=== PATIENT | male | born 1955 | race Hispanic/Latino ===

== ENCOUNTER 2017-11-11 06:18 | Day surgery (SDC) | payer BC ==
[2017-11-11] MEDS ORDERED: NACL 0.9% 500 ML 500 ML ONE (06:47)
[2017-11-11] MEDS ORDERED: NACL 0.9% 500 ML 500 ML IV SCH ×2 (07:00→08:00)
[2017-11-11 07:38] LABS: Basophils # (Auto) 0.1 K/mm3 (0.0-0.1); Basophils % (Auto) 0.8 % (0.0-1.8); Eosinophils # (Auto) 0.2 K/mm3 (0.0-0.4); Eosinophils % (Auto) 2.1 % (0.0-4.3); Hematocrit 42.1 % (35.5-45.6); Hemoglobin 14.3 gm/dl (11.8-15.2); Lymphocytes # (Auto) 3.7 K/mm3 (1.2-5.4); Lymphocytes % (Auto) 32.4 % (13.4-35.0); Mean Corpuscular HGB Conc 34 % (32-34); Mean Corpuscular Hemoglobin 28 pg (28-32); Mean Corpuscular Volume 83 fl (84-94); Monocytes # (Auto) 0.7 K/mm3 (0.0-0.8); Platelet Count 300 K/mm3 (140-440); Red Blood Count 5.06 M/mm3 (3.65-5.03); Red Cell Distribution Width 14.7 % (13.2-15.2)
[2017-11-11 07:48] LABS: INR 0.82 (0.87-1.13)
[2017-11-11 07:59] LABS: BUN/Creatinine Ratio 27; Blood Urea Nitrogen 19 mg/dL (9-20); Calcium 9.2 mg/dL (8.4-10.2); Hemolysis Index 19
[2017-11-11] MEDS ORDERED: HEPARIN/NS 5000 UNIT/500ML(CATH LAB) 1,000 ML IR ONE (09:04)
[2017-11-11] MEDS ORDERED: CALAN ONE (09:05)
[2017-11-11] MEDS ORDERED: XYLOCAINE 2% INFILTRATI ONE (09:05)
[2017-11-11] MEDS ORDERED: HEPARIN 10,000 UNITS/10 ML ONE (09:05)
[2017-11-11] MEDS ORDERED: SUBLIMAZE ONE (09:06)
[2017-11-11] MEDS ORDERED: VERSED ONE (09:06)
[2017-11-11 13:05] VITALS: BP 133/63
--- NOTE | 2017-11-11 13:49 | Cardiac Catherization Report ---
PERIPHERAL ANGIOGRAM The patient is a 62-year-old white gentleman with history of hypertension, diabetes mellitus, chronic smoking. He has bilateral claudication of lower extremities of many months' duration, getting worse now where he has to stop at 50 feet of walking. He gets bilateral calf pain along with numbness in the right thigh. His activities are limited. Noninvasive studies showed bilateral arterial disease, hence scheduled for contrast angiography. The patient is accompanied by his . The patient and were explained of the procedure, potential complications and the alternatives of therapy available. They are aware of the potential complications of contrast allergy, potential renal failure in addition to complication including hemorrhage and hematoma. Also, possible stroke, renal failure were explained to the patient and . They are agreeable to proceed with catheterization. The patient was brought to the catheterization laboratory in a fasting condition. The patient was prepared in a standard fashion and sterile drapes were applied over the entire body and after reviewing the patient's laboratory data and clinical exam, the patient was sedated with IV Versed and fentanyl at 9:25 a.m. Subsequently, right radial artery puncture was made using 21-gauge arterial puncture needle using local anesthesia. Subsequently, a 5-Mongolian sheath was introduced. Under fluoroscopy, 5-Mongolian pigtail catheter was advanced into L1 vertebral area. Abdominal aortogram was performed using 40 mL of dye at 20 mL per second. Subsequently, pigtail catheter was advanced to the L4-L5 area to location above the bifurcation of the aorta into common iliacs. The patient's position of legs was adjusted under fluoroscopy to obtain angiograms of the pelvic vessels in both lower extremities. Using 60 mL of dye at 10 mL per second, angiograms were obtained of the bilateral pelvic vessels and lower extremities. Subsequently, selective angiograms of the left and right pelvic vessels were obtained in oblique positions using 20 mL of dye at 10 mL per second. Once satisfactory angiograms were obtained, Pigtail catheter was removed without difficulty. Good hemostasis was achieved in the right radial artery. During the entire procedure, the patient was monitored with hemodynamics, namely arterial pressure along with oxygen saturations and electrographic monitoring. The patient was asymptomatic of any leg pains or chest pain. No arrhythmia noted. Blood pressure has been stable. The patient was transferred to the outpatient area in stable condition. The patient received moderate sedation after evaluation for the same with IV Versed and fentanyl starting at 9:25 a.m. and patient was monitored for effects of the sedation in the catheterization laboratory up to 10:01 a.m., at which time he was transferred to the room in awake condition and breathing well without any complaints. The patient is comfortable. No untoward complications were noted. Following findings were noted. Abdominal aortogram showed aorta to be of normal size with mild smooth irregularities. Right renal artery showed a 60% smooth long proximal lesion. Left renal artery appears to be unremarkable. Kidneys appear to be of normal size. There is no obvious aneurysmal dilation of the abdominal aorta noted. Angiographically of the pelvic vessels: Right common iliac artery showed eccentric 70% lesion distally. Right internal iliac is patent. Right external iliac showed mild to moderate disease. Angiograms of the left sided iliac vessel showed a 60% distal common iliac lesion, which appears to be mildly calcified. Left internal iliac artery is completely occluded. Left external iliac artery without significant disease. Angiography of the right lower extremity: showed patent right common femoral artery and right SFA. Right SFA distally shows 70% very focal lesion. Right deep femoral artery is widely patent. Right popliteal artery and infra tibial arteries, namely anterior tibial, peroneal, and posterior tibial are widely patent up to the pedal vessels. Angiograms of the left lower extremity:showed mild ostial lesion of the left SFA. Left common femoral artery appears to be unremarkable. There is a segmental 60-70% eccentric lesion in the distal SFA. Left popliteal appears to be unremarkable with three patent infrapopliteal vessels. Left anterior tibial artery shows moderate disease in the proximal one third. Otherwise, patent left peroneal and posterior tibial arteries without significant disease supplying the pedal vessels which are patent. FINAL IMPRESSION: 1. Abdominal aorta appears to be unremarkable with mild irregularities, but no aneurysmal dilatation and 60% or so smooth lesion of the proximal part of the right renal artery. 2. Right common iliac artery shows eccentric mildly calcific lesion in the distal part of the common iliac artery along with moderate disease of the right external iliac artery. Right distal SFA shows 70% very focal lesion with 3-vessel distal runoff. 3. Left common iliac artery shows 60-70% calcific lesion in the distal part with occluded left internal iliac artery. Mild disease of the proximal SFA was noted on the left side with 60-70% segmental lesion in the distal SFA. Popliteal artery is patent on the left side with 3-vessel runoff with some disease in the proximal part of the left anterior tibial artery. Final impression: The patient has bilateral mostly common iliac and distal SFA lesions. These appeared to be amenable for intervention. Considering the patient is having bilateral claudication and thigh pains more on the right than left, would recommend intervention of these lesions. These lesions appeared to be amenable for percutaneous intervention, recommended the same. The patient and family are going to discuss with Dr. De La O, his lean process deployment consultant and we will arrange for intervention of the right lower extremity, initially and subsequently of the left lower extremity depending on the symptomatology. The patient is a chronic smoker. He still smokes. The patient has underlying hypertension and diabetes mellitus. Discussed with the patient and his about potential for restenosis and worsening disease with his history of smoking. He was encouraged to quit smoking. He is going to think about it. The patient tolerated the procedure well. No untoward complications were noted. Right radial artery site appears to be unremarkable. JOB# [id number] SANAM/ED GUEVARA
== END 2017-11-11 13:40 | disposition home or self-care (01) ==
LOC: CATHLABREC 06:18
PROVIDERS: ATTEND Internal Medicine
DX: I70.213 Atherosclerosis of native arteries of extremities with intermittent claudication, bilateral legs (principal); I10 Essential (primary) hypertension; E78.5 Hyperlipidemia, unspecified; E11.51 Type 2 diabetes mellitus with diabetic peripheral angiopathy without gangrene; F17.210 Nicotine dependence, cigarettes, uncomplicated; Z98.890 Other specified postprocedural states; Z79.01 Long term (current) use of anticoagulants; Z79.84 Long term (current) use of oral hypoglycemic drugs
CPT/HCPCS: 36200; 36415; 75625; 75716; 80048; 85025; 85610; 85730; 99156; 99157; C1769; C1894; J1644; J2250; J3010; J7040; Q9967

== ENCOUNTER 2017-12-23 06:29 | Day surgery (SDC) | payer BC ==
[2017-12-23] MEDS ORDERED: NACL 0.9% 500 ML 500 ML IV SCH (07:00)
[2017-12-23 07:21] LABS: Basophils # (Auto) 0.1 K/mm3 (0.0-0.1); Basophils % (Auto) 0.9 % (0.0-1.8); Eosinophils # (Auto) 0.3 K/mm3 (0.0-0.4); Eosinophils % (Auto) 2.2 % (0.0-4.3); Hematocrit 41.8 % (35.5-45.6); Hemoglobin 14.1 gm/dl (11.8-15.2); Lymphocytes # (Auto) 3.7 K/mm3 (1.2-5.4); Lymphocytes % (Auto) 32.8 % (13.4-35.0); Mean Corpuscular HGB Conc 34 % (32-34); Mean Corpuscular Hemoglobin 28 pg (28-32); Mean Corpuscular Volume 83 fl (84-94); Monocytes # (Auto) 0.8 K/mm3 (0.0-0.8); Monocytes % (Auto) 6.9 % (0.0-7.3); Platelet Count 308 K/mm3 (140-440); Red Blood Count 5.05 M/mm3 (3.65-5.03); Red Cell Distribution Width 15.2 % (13.2-15.2)
[2017-12-23 07:35] LABS: INR 0.82 (0.87-1.13)
[2017-12-23 07:39] LABS: BUN/Creatinine Ratio 37; Blood Urea Nitrogen 22 mg/dL (9-20); Calcium 9.2 mg/dL (8.4-10.2); Hemolysis Index 90
[2017-12-23] MEDS ORDERED: XYLOCAINE 2% INFILTRATI ONE (08:06)
[2017-12-23] MEDS ORDERED: HEPARIN/NS 5000 UNIT/500ML(CATH LAB) 1,000 ML IR ONE (08:06)
[2017-12-23] MEDS ORDERED: VERSED ONE (08:07)
[2017-12-23] MEDS ORDERED: SUBLIMAZE ONE (08:07)
[2017-12-23] MEDS: HEPARIN 10,000 UNITS/10 ML ONE ×2 (10:02→10:20)
[2017-12-23] MEDS ORDERED: HEPARIN/NS 5000 UNIT/500ML(CATH LAB) 500 ML IR ONE (10:12)
--- NOTE | 2017-12-23 11:40 | Cardiac Catherization Report ---
PERIPHERAL ARTERIAL REPORT The patient is a 62-year-old white gentleman with history of hypertension, diabetes mellitus, chronic smoking, had bilateral claudication of the lower extremities of longstanding duration. Now, he is getting have pain in the right thigh on walking 50 feet of walking. Also, he feels numbness in the right thigh. Hence, he underwent peripheral angiogram performed on 11/11/2016. Because his symptoms are more in the right thigh area, it was decided to do intervention of the right common iliac and right external iliac arteries. The patient does have focal distal SFA lesion. The patient was explained of the procedure, potential complications, and the alternatives of therapy available. I explained the procedure. He is willing to have intervention attempted. He is aware of alternatives of surgical intervention. DESCRIPTION OF PROCEDURE: The patient was brought to the catheterization laboratory in a fasting condition. The patient was prepared in a standard fashion. The patient was sedated with IV Versed and fentanyl around 9:30 a.m. after evaluating for appropriateness of moderate sedation. Subsequently, sterile drapes were applied. Local anesthesia was given in the left groin area. A 5-Hungarian sheath was introduced. Subsequently, using a rim catheter, 0.035 inch Yogi[place] guidewire was advanced into the right distal SFA. Subsequently, 7-Hungarian 23 cm standard sheath was advanced over the bifurcation into the right common iliac area. Angiograms of the right pelvic vessels were obtained, which showed 60% or so distal right common iliac lesion and also long right external iliac lesion. After giving heparin 70 units per kg, a gradient was obtained from the right common femoral area to the right proximal right common iliac artery and significant gradient was noted. Systolic blood pressure 157 mmHg was noted in the right proximal common iliac artery and pressure of 86 mmHg was noted in the right common femoral artery with a significant gradient more than 70 mmHg. It was felt both the lesions in the right external iliac and right common iliac were felt to be significant. Initially balloon dilation of the right external iliac was performed using 5mm x 60 mm [place] balloon to nominal pressure of 8 atmospheres, followed by placement of a 6 x 57 mm Visi-Pro EV3 stent inflated to 10 atmospheres with good result. Subsequently, a 7 x 17 mm Visi-Pro stent was inserted in the right mid to distal common iliac artery, inflated to 10 atmospheres with good result. Final gradient was much improved from 70 mm to less than 20 mm. Final angiograms did not show any evidence of perforation or dissection. The patient tolerated the procedure well without any pain or discomfort in the right lower extremity. A 23 mm sheath was changed to 11 mm 7-Hungarian sheath and the patient was transferred to the room in stable condition. Monitoring of the sedation ended at 10:35 a.m. No hematoma noted in the left groin. The patient's vital signs have been stable. The patient remained in sinus rhythm. Pulse oximetry was unremarkable. The patient's ACT was elevated in 230s at the end of the procedure. Once ACT comes to around 180 seconds, we will consider removing the sheath and putting manual pressure. Procedure was uncomplicated. FINAL IMPRESSION: Uncomplicated balloon expandable stent in the right external iliac artery and also right common iliac artery with significant gradient noted prior to the procedure and improved markedly post-procedure. Manual pressure being applied for hemostasis in the left groin. Blood loss is minimal. No blood transfusion was given. No biopsies or tissue was removed. The patient is in stable condition. The patient will be discharged home once he is stable. The patient is already on aspirin and Plavix in addition to antilipemic drugs. The patient will be monitored and the patient will be followed in the office. Findings were explained to the patient and . JOB# [id number] SANAM/ED GUEVARA
[2017-12-23 16:37] VITALS: BP 139/66
== END 2017-12-23 16:55 | disposition home or self-care (01) ==
LOC: CATHLABREC 06:29
PROVIDERS: ATTEND Internal Medicine
DX: I70.213 Atherosclerosis of native arteries of extremities with intermittent claudication, bilateral legs (principal); Z79.01 Long term (current) use of anticoagulants
CPT/HCPCS: 36415; 37221; 37223; 80048; 85025; 85347; 85610; 85730; 99156; 99157; C1725; C1769; C1876; C1887; C1894; J1644; J2250; J3010; J7040; Q9967